=== PATIENT | female | born 1965 | race Caucasian/White ===

== ENCOUNTER 2016-06-09 16:32 | Emergency (ER) | payer MEDICARE, MEDICAID ==
[~2016-06-09] VITALS: Ht 175.3 cm; Wt 122.0 kg
[~2016-06-09 16:32] MED LIST: ALBU18HF INHALATION; IBUP800T25 PO; LEVO750T25 PO; METO-407 PO; PANT40TA3 PO; QUET200T23 PO; ULT50 PO
[2016-06-09 16:41] VITALS: Ht 175.3 cm; Wt 122.0 kg
[2016-06-09] MEDS ORDERED: morphine 10 MG INJ IM ONE (18:00)
[2016-06-09] MEDS ORDERED: ONDANSETRON (ODT) 4 MG TAB ODT STA ×2 (18:00→20:24)
--- NOTE | 2016-06-09 19:33 | RADRPT ---
PROCEDURE: XR Left foot. CLINICAL INDICATION: Left foot pain TECHNIQUE: Three views of the left foot were obtained. COMPARISON: No prior studies are available for comparison. FINDINGS: There is no radiographic evidence of acute fracture. There is orthopedic hardware at the distal fib reji and tibia. There is dorsal dislocation at the fourth proximal interphalangeal joint. Alignment is otherwise normal. Joint spaces are preserved. There is soft tissue swelling of the fourth digit. IMPRESSION: 1. Dorsal dislocation of the fourth proximal interphalangeal joint. 2. No radiographic evidence of acute osseous abnormality noting orthopedic hardware at the ankle fro m previous fractures. RPTAT: UU .Sy Marquez MD, MD Date Time Electronically viewed and signed by .Sy Marquez MD, on 06/09/2016 19:32 .K/
--- NOTE | 2016-06-09 19:34 | RADRPT ---
PROCEDURE: XR Lumbar Spine. CLINICAL INDICATION: Low back pain TECHNIQUE: 3 images of the lumbar spine were obtained. COMPARISON: No prior studies are available for comparison. FINDINGS: There are 5 non rib-bearing lumbar type vertebral bodies. Vertebral body height and alignment is preserved. There is no radiographic evidence of acute fracture or subluxation. Mild degenerate disk disease at L5-S1 is noted along with mild facet arthrosis at this level. There are small anterior osteophytes at L3-L4. Paraspinal soft tissues are grossly unremarkable. Limited assessment of the sacroiliac joints is grossly unremarkable. IMPRESSION: 1. No radiographic evidence of acute osseous abnormality noting mild degenerative changes as above. RPTAT: UU .Sy Marquez MD, MD Date Time Electronically viewed and signed by .Sy Marquez MD, on 06/09/2016 19:33 .K/
--- NOTE | 2016-06-09 19:35 | RADRPT ---
PROCEDURE: XR Ankle. CLINICAL INDICATION: Right ankle pain TECHNIQUE: 3 views of the right ankle were performed. COMPARISON: None. FINDINGS: There is no evidence of acute fracture. There is mild lateral soft tissue swelling. There is ortho pedic hardware at the midfoot, incompletely assessed. Alignment is normal. Joint spaces are preserved. There is calcaneal enthesopathy. IMPRESSION: 1. No radiographic evidence of acute osseous abnormality noting orthopedic hardware at the midfoot, incompletely assessed. 2. Mild lateral soft tissue swelling over the distal fibula. RPTAT: UU .Sy Marquez MD, MD Date Time Electronically viewed and signed by .Sy Marquez MD, on 06/09/2016 19:34 .K/
[2016-06-09] MEDS ORDERED: LIDOCAINE 2% (MDV) 20 ML INJ INJ ONE (20:00)
[2016-06-09] MEDS ORDERED: HYDROmorphONE 1 MG/ML SYG IV STA (20:24)
[2016-06-09] MEDS ORDERED: HYDR-906 PO (20:31)
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
[2016-06-09 20:47] LABS: BASOPHILS % 0.1 % (0.0-2.0); EOSINOPHILS # 0.1 10^3/ul (0.0-0.5); EOSINOPHILS % 2.4 % (0.0-7.0); HEMATOCRIT 35.5 % (37.0-47.0); HEMOGLOBIN 11.9 g/dl (12.0-16.0); LYMPHOCYTES # 0.9 10^3/ul (0.8-2.9); LYMPHOCYTES % 17.8 % (15.0-51.0); MEAN CORPUSCULAR HEMOGLOBIN 30.4 pg (29.0-33.0); MEAN CORPUSCULAR HGB CONC 33.6 g/dl (32.0-37.0); MEAN CORPUSCULAR VOLUME 90.4 fl (82.0-101.0); MEAN PLATELET VOLUME 8.4 fl (7.4-10.4); MONOCYTE # 0.2 10^3/ul (0.3-0.9); MONOCYTES % 3.3 % (0.0-11.0); NEUTROPHIL # 3.8 10^3/ul (1.6-7.5); NEUTROPHILS % 76.4 % (39.0-77.0); PLATELET COUNT 235 10^3/UL (140-440); RED BLOOD COUNT 3.92 10^6/ul (4.20-5.40); RED CELL DISTRIBUTION WIDTH 15.8 % (11.5-14.5)
[2016-06-09 20:53] LABS: CONDITION 1; LH ANALYZER COMMENTS 1
[2016-06-09 20:55] LABS: CHLORIDE 108 mmol/L (97-110)
[2016-06-09 20:56] LABS: ALBUMIN 4.2 g/dl (3.3-4.9); POTASSIUM 4.6 mmol/L (3.5-5.1); SODIUM 143 mmol/L (135-144)
[2016-06-09 20:58] LABS: CREATININE 0.82 mg/dl (0.44-1.00)
[2016-06-09 20:59] LABS: ALANINE AMINOTRANSFERASE 18 IU/L (13-69); ALBUMIN/GLOBULIN RATIO 1.23; ALKALINE PHOSPHATASE 124 IU/L (42-121); ANION GAP 15 (8-16); ASPARTATE AMINO TRANSFERASE 25 IU/L (15-46); BLOOD UREA NITROGEN 9 mg/dl (7-20); CALCIUM 8.9 mg/dl (8.4-10.2); CARBON DIOXIDE 25 mmol/L (21-31); GLUCOSE 91 mg/dl (70-220); TOTAL PROTEIN 7.6 g/dl (6.1-8.1)
[2016-06-09 21:14] LABS: TROPONIN-I < 0.010 ng/ml (0.00-0.12)
--- NOTE | 2016-06-09 22:02 | RADRPT ---
PROCEDURE: XR Chest. CLINICAL INDICATION: Chest pain TECHNIQUE: Single frontal view of the chest. COMPARISON: 03/23/2016 chest radiograph. FINDINGS: Mild hazy opacity in the lung bases likely due to hypoventilation. No definite focal consolidation. No pleural effusion or pneumothorax. Heart size is magnified. No acute osseous abnormalities. IMPRESSION: Mild hazy opacity in the lung bases likely due to hypoventilation. No definite focal consolidation. RPTAT: AADD .Elio Patricia MD, MD Date Time Electronically viewed and signed by .Elio Patricia MD, MD on 06/09/2016 22:02 .B/
--- NOTE | 2016-06-09 22:08 | RADRPT ---
PROCEDURE: XR Foot. CLINICAL INDICATION: post reduction TECHNIQUE: AP, lateral and oblique views of the left foot was obtained. The images were reviewed on a PACS workstation. COMPARISON: Earlier examination at 07:11 p.m. FINDINGS: There remains dorsal dislocation at the fourth digit proximal interphalangeal joint, with proximal m igration of the distal fracture portion up to 3 mm. There is a plantar calcaneal spur. There is hartley rdware fixation of the medial and lateral malleolus. IMPRESSION: 1. There is unchanged dorsal dislocation of the fourth digit proximal interphalangeal joint. 2. Hardware fixation of the medial and lateral malleolus. 3. Plantar calcaneal spur. RPTAT: HBST .Surya Hare MD, MD Date Time Electronically viewed and signed by .Surya Hare MD, on 06/09/2016 22:07 .T/
--- NOTE | 2016-06-09 22:25 | RADRPT ---
PROCEDURE: X-ray rib series CLINICAL INDICATION: chest pain TECHNIQUE: Multiple images of the right ribs are obtained. COMPARISON: None available FINDINGS: Visualized osseous structures appear intact, without evidence of fracture or dislocation. There is no pneumothorax. Soft tissue structures appear within normal limits. There is mild to moderate aort ic calcification. IMPRESSION: No rib fracture identified on plain film. RPTAT: HBST .Surya Hare MD, MD Date Time Electronically viewed and signed by .Surya Hare MD, on 06/09/2016 22:24 .T/
[2016-06-09] MEDS ORDERED: HYDROCODONE/APAP (10/325) TAB PO ONE (23:30)
--- NOTE | 2016-06-10 00:11 | RADRPT ---
PROCEDURE: Left foot series CLINICAL INDICATION: A second attempt post reduction film of fourth proximal interphalangeal joint TECHNIQUE: Three views. COMPARISON: Left foot films 06/09/2016 FINDINGS: Successful reduction of previously noted dorsal dislocation at the fourth proximal interphalangeal j oint. Intact hardware is again noted of the medial and lateral malleolus. Calcaneal spurs noted al yuan the plantar surface. Mild joint space narrowing is present of the left second and third distal interphalangeal joints. No definite fractures are visualized. IMPRESSION: 1. Successful complete reduction of previously noted dorsal dislocation of the fourth proximal inte rphalangeal joint without evidence for fractures. 2. Plantar calcaneal spur 3. Intact fixation hardware at the medial and lateral malleolus. 4. 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 RPTAT: HDC .Bailey Rashid MD, Date Time Electronically viewed and signed by .Bailey Rashid MD, on 06/10/2016 00:11 .C/
[2016-06-10] MEDS ORDERED: ULT50 PO (00:29)
[2016-06-10 00:39] VITALS: BP 129/80; PULSE 76; RESP 14
--- NOTE | 2016-06-10 01:26 | QN ---
Documentation Comment The patient presented with dislocated left fourth toe. The PA was unable to reduce the dislocation. I was asked to reduce the dislocated left fourth toe. Risks, benefits, alternatives were explained to the patient who consented for the procedure Procedure: Close reduction of dislocated left fourth toe The left fourth toe was a digital block with 1% lidocaine. It was reduced with traction/countertraction without any difficulty. Post reduction neurovascular is intact. Repeat x-ray was read by radiologist confirm the successful reduction. He was treated with left short posterior splint EMELI MORIN MD Jun 10, 2016 01:26
== END 2016-06-10 01:15 | disposition home or self-care (01) ==
LOC: FTE 16:32
DX: S99.911A Unspecified injury of right ankle, initial encounter (principal); S99.922A Unspecified injury of left foot, initial encounter; I10 Essential (primary) hypertension; Y04.0XXA Assault by unarmed brawl or fight, initial encounter
CPT/HCPCS: 29515; 36415; 71010; 71100; 72100; 73610; 73630; 80053; 84484; 85025; 93005; 96372; 96374; 99285; J1170; J2270